=== PATIENT | female | born 1955 | race Caucasian/White ===

== ENCOUNTER 2019-04-10 16:28 | Emergency (ER) | payer OTHER ==
[2019-04-10 16:37] VITALS: BP 169/83; PULSE 91; TEMP 97.4; BMI 24.5
--- NOTE | 2019-04-10 16:37 | PDOC ---
Rapid Medical Evaluation Time Seen by Provider: 04/10/19 16:33 Medical Evaluation: Allergies Allergy/AdvReac Type Severity Reaction Status Date / Time No Known Allergies Allergy Verified 04/10/19 16:32 04/10/19 16:33 I performed a brief in-person evaluation of this patient. 63-year-old female with NIDDM BIBEMS s/p slip and fall with head and knee injuries. Struck head on shelf. No dizziness preceding fall - tripped over kids sitting in aisle. No LOC. Tetanus is up-to-date. Pertinent physical exam findings: Scalp laceration, bandaged by EMS Alert, oriented, no distress Pain with extension of left knee I have ordered the following: Left knee x-ray Patient to proceed to [facility] for further evaluation. Discharge Disposition - Diagnosis Head injury - Referrals - Patient Instructions - Post Discharge Activity
[2019-04-10] MEDS ORDERED: DIPHTH,PERTUSS(ACELL),TET 0.5 ML DISP.SYRIN IM ONE ×2 (19:30→19:40)
--- NOTE | 2019-04-10 19:37 | PDOC ---
History of Present Illness - General Chief Complaint: Injury Stated Complaint: FALL Time Seen by Provider: 04/10/19 16:33 - History of Present Illness Initial Comments: 04/10/19 19:31 63-year-old female presents for evaluation after a fall in a store. She states she slipped and a dollar store today hitting her face. No loss of consciousness post injury nausea vomiting or visual changes she complains of nasal pain. She does have a laceration on her face which was controlled with direct pressure. Past History - Past Medical History Allergies/Adverse Reactions: Allergies Allergy/AdvReac Type Severity Reaction Status Date / Time No Known Allergies Allergy Verified 04/10/19 16:32 Home Medications: Ambulatory Orders Azithromycin 250 mg PO DAILY #4 tablet 09/07/11 Diabetes: Yes Hypercholesterolemia: Yes - Surgical History Cholecystectomy: Yes - Psycho Social/Smoking Cessation Hx Smoking Status: No Smoking History: Never smoked Have you smoked in the past 12 months: No Number of Cigarettes Smoked Daily: 0 Hx Alcohol Use: No Drug/Substance Use Hx: No Review of Systems - Review of Systems HEENTM: No: Recent change in vision ABD/GI: No: Nausea, Vomiting Neurological: No: Headache *Physical Exam - Vital Signs Last Vital Signs Temp Pulse Resp BP Pulse Ox 97.4 F L 91 H 18 169/83 98 04/10/19 16:34 04/10/19 16:34 04/10/19 16:34 04/10/19 16:34 04/10/19 16:34 - Physical Exam 04/10/19 19:32 GENERAL: The patient is awake, alert, and fully oriented, in no acute distress. HEAD: There is about a 3 cm vertically oriented laceration on the left forehead. Nasal swelling and a small hematoma on the forehead EYES: sclera anicteric, conjunctiva clear. ENT: Ears normal tympanic membranes normal oropharynx clear uvula midline NECK: Normal range of motion LUNGS: Breath sounds equal, clear to auscultation bilaterally. No wheezes, and no crackles. HEART: S1 and S2 without murmur, rub or gallop. ABDOMEN: Soft, nontender, normoactive bowel sounds. No guarding, no rebound. No masses. EXTREMITIES: Normal range of motion, no edema. No clubbing or cyanosis. No cords, erythema, or tenderness. NEUROLOGICAL: Cranial nerves II through XII grossly intact. Normal speech, normal gait. PSYCH: Normal mood, normal affect. SKIN: Warm, Dry, normal turgor, no rashes or lesions noted. 04/10/19 19:33 There is a superficial abrasion on the anterior aspect of the right knee range of motion 0-90 diffuse tenderness no instability or gross sensorimotor deficits. Thigh and calf soft and nontender neurovascular intact Left knee skin color and temperature normal. There is a mild intra-articular effusion no instability or gross sensorimotor deficits thigh and calf are soft and nontender neurovascular intact. General Appearance: Yes: Appropriately Dressed ED Treatment Course - RADIOLOGY Radiology Studies Ordered: Category Date Time Status FACIAL BONES CT W/O CONTRAST [CT] Stat CT Scan 04/10/19 17:[address] WITHOUT CONTRAST [CT] Stat CT Scan 04/10/19 17:03 Completed Medical Decision Making - Medical Decision Making 04/10/19 19:32 The wound was anesthetized with 1% lidocaine without epinephrine. Explored to its base in a bloodless field without any identification of foreign body. Copiously irrigated with normal saline. Edges approximated using 5 interrupted simple sutures using 5-0 nylon . Dry sterile dressing was placed. 04/10/19 19:34 Bilateral knee contusions weight-bear as tolerated follow-up with orthopedics 04/10/19 19:34 Nasal fracture follow-up with [facility] Discharge - Discharge Information Problems reviewed: Yes Clinical Impression/Diagnosis: Head injury, Contusion, knee, Laceration of face, Nasal bone fracture Condition: Stable Disposition: HOME - Admission Yes - Follow up/Referral Referrals: Keith Grayson DO [Staff Physician] - Robel Triplett [Staff Physician] - Naresh Christine [Non Staff, Medical] - Viral Reyes [Staff Physician] - Sung Maldonado MD [Non Staff, Medical] - Harris Gill MD [Non Staff, Medical] - - Patient Discharge Instructions Additional Instructions: You may weight-bear as tolerated. Tylenol as directed for pain. For your nasal fracture you should follow-up with maxillofacial surgery in 1 to 2 days without fail for further evaluation and treatment options. For her bilateral knee pain he should follow-up with orthopedic surgery in 1 to 2 days without fail for further evaluation and treatment options. Please keep the dressing on for the next 48 hours. After 48 hours you may remove the dressing wash the area with soap and water and leave it open to air. If you must work please cover the area with a dry sterile dressing such as a large Band-Aid. Keep the area open to air as much as possible. Return to the emergency room for any worsening symptoms or concern for infection such as redness, swelling, increasing pain, or drainage. Other than that sutures out in 7 days Tylenol and Motrin as directed for pain. Return to the emergency room for any reason should you have further issues. - Post Discharge Activity
== END 2019-04-10 19:54 | disposition home or self-care (01) ==
LOC: JERFT 16:28
PROC: 0HQ1XZZ Repair Face Skin, External Approach (ICD-10-PCS; principal; 2019-04-10)
DX: S02.2XXA Fracture of nasal bones, initial encounter for closed fracture (principal); S01.81XA Laceration without foreign body of other part of head, initial encounter; S80.02XA Contusion of left knee, initial encounter; S80.01XA Contusion of right knee, initial encounter; S00.83XA Contusion of other part of head, initial encounter; W03.XXXA Other fall on same level due to collision with another person, initial encounter; Y93.89 Activity, other specified; Y92.512 Supermarket, store or market as the place of occurrence of the external cause; Y99.8 Other external cause status
CPT/HCPCS: 70450-TC; 70486-TC; 73562-TC-LT-FY; 90715; 99281-25

== ENCOUNTER 2019-04-20 14:45 | Emergency (ER) | payer OTHER ==
[2019-04-20 15:03] VITALS: BP 147/76; PULSE 80; TEMP 98; BMI 26.4
--- NOTE | 2019-04-20 15:05 | PDOC ---
Rapid Medical Evaluation Chief Complaint: Suture/Staple Removal(Here) Time Seen by Provider: 04/20/19 15:01 Medical Evaluation: Allergies Allergy/AdvReac Type Severity Reaction Status Date / Time No Known Allergies Allergy Verified 04/10/19 16:32 04/20/19 15:02 I have performed a brief in-person evaluation of this patient. The patient presents with a chief complaint of: present for suture removal to left side of forehead s/p presenting over a week ago with lac s/p fall. Pt report still feeling pain in left knee and intermittent headache while gets better with Tylenol Pertinent physical exam findings: 2cm vertical linear lac to left side of forehead to hairline with [address] no erythema to area I have ordered the following: nothing The patient will proceed to the ED for further evaluation. Discharge Disposition - Diagnosis Encounter for removal of sutures - Discharge Dispostion Condition at time of disposition: Stable - Referrals - Patient Instructions - Post Discharge Activity
--- NOTE | 2019-04-20 16:41 | PDOC ---
Suture Removal/Wound Check HPI - History of Present Illness Chief Complaint: Suture/Staple Removal(Here) Stated Complaint: REMOVE STITCHES Time Seen by Provider: 04/20/19 15:01 History Source: Yes: Patient Treated at: [facility] Date of Last ED visit: 04/10/19 - Previous ED Treatment Type of procedure performed on last visit: Yes: Laceration Repair (5 suture removed from L forehead without complication. No discharge, erythema, swelling to site of laceration. Patient tolerated well.) Tetanus Immunization: Yes: Given at last ED visit Antibiotics Prescribed: No Past History - Past Medical History Allergies/Adverse Reactions: Allergies Allergy/AdvReac Type Severity Reaction Status Date / Time No Known Allergies Allergy Verified 04/20/19 15:03 Home Medications: Ambulatory Orders Azithromycin 250 mg PO DAILY #4 tablet 09/07/11 COPD: No Diabetes: Yes Hypercholesterolemia: Yes - Surgical History Cholecystectomy: Yes - Psycho Social/Smoking Cessation Hx Smoking Status: No Smoking History: Never smoked Have you smoked in the past 12 months: No Number of Cigarettes Smoked Daily: 0 Hx Alcohol Use: No Drug/Substance Use Hx: No *Physical Exam - Vital Signs Last Vital Signs Temp Pulse Resp BP Pulse Ox 98 F 80 18 147/76 98 04/20/19 14:58 04/20/19 14:58 04/20/19 14:58 04/20/19 14:58 04/20/19 14:58 Discharge - Discharge Information Problems reviewed: Yes Clinical Impression/Diagnosis: Encounter for removal of sutures Condition: Stable Disposition: HOME - Admission No - Follow up/Referral Referrals: Sung Le MD [Staff Physician] - Kiley Cox MD [Primary Care Provider] - Sung Maldonado MD [Non Staff, Medical] - Harris Gill MD [Non Staff, Medical] - Keith Grayson DO [Staff Physician] - - Patient Discharge Instructions Patient Printed Discharge Instructions: DI for Postconcussion Syndrome, DI for Knee Pain Additional Instructions: As discussed you must follow-up with your specialist for your nasal fracture as well as for your knee pain within the next 2 days. If you develop any change in vision, difficulty speaking/swallowing/walking, weakness to one side, or any new or worsening symptoms, please return to the ER immediately. - Post Discharge Activity
== END 2019-04-20 16:47 | disposition home or self-care (01) ==
LOC: JERFT 14:45
DX: Z48.817 Encounter for surgical aftercare following surgery on the skin and subcutaneous tissue (principal); Z48.02 Encounter for removal of sutures
CPT/HCPCS: 99282-25

== ENCOUNTER 2021-01-17 10:29 | Emergency (ER) | payer OTHER ==
[2021-01-17 10:47] VITALS: BP 138/75; PULSE 99; TEMP 98; BMI 23.1
[2021-01-17] MEDS ORDERED: IBUPROFEN 600 MG TABLET (FP) PO ONE ×2 (11:53→11:56)
[2021-01-17] MEDS ORDERED: ACETAMINOPHEN 500 MG TABLET (FP) PO ONE (11:53)
[2021-01-17] MEDS ORDERED: ACETAMINOPHEN 325 MG TABLET (FP) ONE (11:56)
[2021-01-17] MEDS ORDERED: valACYclovir HCL 1000 MG TABLET PO ONE (12:23)
[2021-01-17] MEDS ORDERED: valACYclovir HCL 500 MG TABLET (FP) ONE (12:32)
== END 2021-01-17 13:43 | disposition home or self-care (01) ==
LOC: JER 10:29
DX: R21 Rash and other nonspecific skin eruption (principal); B02.9 Zoster without complications
CPT/HCPCS: 99283-25

== ENCOUNTER 2021-07-18 13:20 | Emergency (ER) | payer OTHER ==
[2021-07-18 13:33] VITALS: BMI 23.3
[2021-07-18] MEDS ORDERED: MECLIZINE HCL 25 MG TABLET (FP) PO ONE (16:51)
[2021-07-18] MEDS ORDERED: MECLIZINE HCL 25 MG TABLET (FP) ONE (16:56)
[2021-07-18 17:03] VITALS: BP 123/75; PULSE 85; TEMP 98.1
== END 2021-07-18 19:24 | disposition home or self-care (01) ==
LOC: JER 13:20
DX: S09.90XA Unspecified injury of head, initial encounter (principal); R42 Dizziness and giddiness; W00.9XXA Unspecified fall due to ice and snow, initial encounter
CPT/HCPCS: 70450-TC; 82962; 93005; 93010; 99285-25

== ENCOUNTER 2023-01-30 09:30 | Emergency (ER) | payer MEDICARE, OTHER ==
[2023-01-30 09:43] VITALS: BP 157/89; PULSE 88; RESP 18; TEMP 98.1; BMI 22.8
[2023-01-30] MEDS ORDERED: KETOROLAC TROMETHAMINE 30 MG/1 ML VIAL IM ONE (10:46)
[2023-01-30] MEDS ORDERED: KETOROLAC TROMETHAMINE 30 MG/1 ML VIAL ONE ×2 (10:50→10:54)
== END 2023-01-30 11:32 | disposition home or self-care (01) ==
LOC: JER 09:30
PROC: 3E0233Z Introduction of Anti-inflammatory into Muscle, Percutaneous Approach (ICD-10-PCS; principal; 2023-01-30)
DX: S52.532A Colles' fracture of left radius, initial encounter for closed fracture (principal); X58.XXXA Exposure to other specified factors, initial encounter
CPT/HCPCS: 73110-TC-LT-FY; 73130-TC-LT-FY; 96372; 99284-25